=== PATIENT | female | born 1970 | race Caucasian/White ===

== ENCOUNTER 2022-07-01 07:28 | Day surgery (SDC) | payer OTHER ==
[~2022-07-01] VITALS: Ht 157.5 cm; Wt 65.8 kg
[2022-07-01] MEDS ORDERED: MIDAZOLAM 2 MG/2 ML VIAL ONE (08:00)
[2022-07-01] MEDS ORDERED: fentaNYL citrate 0.05 MG/ML VIAL ONE (08:01)
[2022-07-01] MEDS ORDERED: LIDOCAINE 2% 100 MG/5 ML UJET TP ONE (08:01)
[2022-07-01] MEDS ORDERED: MIDAZOLAM 2 MG/2 ML VIAL IVP ONE (09:50)
[2022-07-01] MEDS ORDERED: fentaNYL citrate 0.05 MG/ML VIAL IVP ONE (09:50)
== END 2022-07-01 09:59 | disposition home or self-care (01) ==
LOC: MDS 07:28 → MMU 07:29 → MDS 09:59
PROVIDERS: ATTEND Internal Medicine Gastroenterology
DX: Z12.11 Encounter for screening for malignant neoplasm of colon (principal); K64.9 Unspecified hemorrhoids; K30 Functional dyspepsia; Z20.822 Contact with and (suspected) exposure to COVID-19; Z88.0 Allergy status to penicillin
CPT/HCPCS: 36415; 43239; 45378; 86677; 87426; J2250; J3010